=== PATIENT | female | born 1980 | race Caucasian/White ===

== ENCOUNTER 2022-11-10 05:45 | Day surgery (SDC) | payer BC, SELFPAY ==
[2022-11-10 06:41] VITALS: BMI 28.1
[2022-11-10] MEDS ORDERED: hydrALAZINE 20 MG/ML VIAL SLOW IVP PRN (06:49)
[2022-11-10 08:08] LABS: FFN Internal QC Analyzer PASS (PASS); FFN Internal QC Cassette PASS (PASS); Fetal Fibronectin Negative (Negative)
== END 2022-11-10 10:20 | disposition home or self-care (01) ==
LOC: CSHLD/OP 05:45
PROVIDERS: ATTEND Advanced Practice Midwife
DX: O47.03 False labor before 37 completed weeks of gestation, third trimester (principal); O09.33 Supervision of pregnancy with insufficient antenatal care, third trimester; Z79.899 Other long term (current) drug therapy; Z91.018 Allergy to other foods; Z88.3 Allergy status to other anti-infective agents; Z67.91 Unspecified blood type, Rh negative; Z3A.33 33 weeks gestation of pregnancy
CPT/HCPCS: 76815; 76819; 82731; 99282

== ENCOUNTER 2022-12-20 06:18 | Inpatient (IN) | payer MEDICAID ==
[2022-12-20 06:58] VITALS: BMI 31.1
[2022-12-20] MEDS ORDERED: hydrALAZINE 20 MG/ML VIAL SLOW IVP PRN ×2 (07:43→15:52)
[2022-12-20] MEDS ORDERED: Misoprostol 200 MCG TAB PR PRN (07:43)
[2022-12-20] MEDS ORDERED: Lidocaine 1% (PF) 30 ML VIAL SC PRN (07:43)
[2022-12-20] MEDS ORDERED: Lactated Ringer's 1,000 ML IV PRN (07:43)
[2022-12-20] MEDS ORDERED: Ibuprofen 800 MG TAB PO PRN (07:43)
[2022-12-20] MEDS ORDERED: Methylergonovine 0.2 MG/ML VIAL IM PRN (07:43)
[2022-12-20] MEDS ORDERED: Ondansetron PF 4 MG/2 ML Vial IVP PRN (07:43)
[2022-12-20] MEDS ORDERED: Promethazine HCl 25 MG/ML VIAL IM PRN (07:43)
[2022-12-20] MEDS ORDERED: HYDROcodone/Acetaminophen 5/325 mg Tablet PO PRN ×4 (07:43→15:52)
[2022-12-20] MEDS ORDERED: NS w/ Oxytocin 30 units 500 ML IV SCH ×3 (07:45→15:52)
[2022-12-20 08:52] LABS: Hemoglobin 13.5 g/dL (12.0-15.5); Mean Corpuscular Volume 94.1 fl (81.6-98.3); Mean Platelet Volume 8.4 fl (7.4-10.4); Platelet Count 242 10x3/uL (150-450); RBC Distribution Width 15.6 % (11.5-14.5); Red Blood Cell (RBC) Count 4.22 10x6/uL (3.90-5.03); White Blood Cell (WBC) Count 11.1 10x3/uL (3.5-10.5)
[2022-12-20 09:14] LABS: HBSAg Index 0.18 S/CO (0-0.99); Hep B Surf Ag - L&D Non-Reactive S/CO (NonReactive); Syphilis Antibody Nonreactive (Nonreactive)
[2022-12-20 09:47] LABS: Syphilis Antibody Index 0.05 S/CO (<1.00 Non-Reactive)
[2022-12-20] MEDS ORDERED: Boostrix 0.5 ML (Tdap) VIAL (>/=7 yrs of age) IM ONE (15:52)
[2022-12-20] MEDS ORDERED: Misoprostol 200 MCG TAB VAG PRN (15:52)
[2022-12-20] MEDS ORDERED: Benzocaine-Menthol 82.5 ML CAN TOP PRN (15:52)
[2022-12-20] MEDS ORDERED: Bisacodyl 10 MG SUPP PR PRN (15:52)
[2022-12-20] MEDS ORDERED: Milk Of Magnesia 30 ML UDCUP PO PRN (15:52)
[2022-12-20] MEDS: Ferrous Sulfate 325 MG TAB PO SCH (17:17)
[2022-12-20] MEDS: Docusate 100 MG CAP PO SCH (21:31)
[2022-12-21] MEDS: Ibuprofen 800 MG TAB PO SCH ×2 (03:33→18:15)
[2022-12-21] MEDS: Ferrous Sulfate 325 MG TAB PO SCH ×2 (08:40→17:29)
[2022-12-21] MEDS: Docusate 100 MG CAP PO SCH ×2 (08:40→17:32)
[2022-12-21] MEDS: Prenatal Vitamin 1 TAB PO SCH (08:41)
[2022-12-21] MEDS ORDERED: Witch Hazel-Glycerin 1 EACH JAR TOP PRN (11:28)
[2022-12-21] MEDS ORDERED: Preparation H Ointment 28 GM TUBE TOP PRN (16:01)
[2022-12-21] MEDS ORDERED: Preparation H Ointment 57 gram tube TOP PRN (18:05)
[2022-12-22 09:08] VITALS: BP 100/66; TEMP 98.2
[2022-12-22] MEDS: Prenatal Vitamin 1 TAB PO SCH (09:13)
[2022-12-22] MEDS: Ferrous Sulfate 325 MG TAB PO SCH (09:13)
[2022-12-22] MEDS: Docusate 100 MG CAP PO SCH (09:14)
== END 2022-12-22 13:45 | disposition home or self-care (01) | DRG 806 ==
LOC: CSHLD/OP 06:18 → CSHLD 10:30 → CSHPP 13:35
PROVIDERS: ADMIT Obstetrics & Gynecology; ATTEND Obstetrics & Gynecology
PROC: 10E0XZZ Delivery of Products of Conception, External Approach (ICD-10-PCS; principal; 2022-12-20)
PROC: 0HQ9XZZ Repair Perineum Skin, External Approach (ICD-10-PCS; 2022-12-20)
DX: O32.8XX0 Maternal care for other malpresentation of fetus, not applicable or unspecified (principal); O87.2 Hemorrhoids in the puerperium; Z37.0 Single live birth; Z3A.39 39 weeks gestation of pregnancy; O70.0 First degree perineal laceration during delivery; O76 Abnormality in fetal heart rate and rhythm complicating labor and delivery; Z88.8 Allergy status to other drugs, medicaments and biological substances; Z91.018 Allergy to other foods
CPT/HCPCS: 85027; 85461; 86780; 86850; 86900; 86901; 87340; 99285; J2001; J2590

== ENCOUNTER 2023-03-14 23:41 | Emergency (ER) | payer MEDICAID, OTHER ==
[2023-03-15] MEDS ORDERED: Acetaminophen 500 MG TAB ONE (00:09)
== END 2023-03-15 03:35 | disposition home or self-care (01) ==
LOC: CSHERS 23:41
DX: S63.104A Unspecified dislocation of right thumb, initial encounter (principal); S06.0X0A Concussion without loss of consciousness, initial encounter; S80.212A Abrasion, left knee, initial encounter; S60.812A Abrasion of left wrist, initial encounter; S00.81XA Abrasion of other part of head, initial encounter; S40.212A Abrasion of left shoulder, initial encounter; S70.212A Abrasion, left hip, initial encounter; W19.XXXA Unspecified fall, initial encounter
CPT/HCPCS: 26770; 70450; 70486; 72125; 72170